=== PATIENT | male | born 1980 | race Caucasian/White ===

== ENCOUNTER 2019-02-03 22:45 | Emergency (ER) | payer OTHER ==
[2019-02-03 23:02] VITALS: BP 172/111; PULSE 65; RESP 20; TEMP 98.4
[2019-02-03] MEDS ORDERED: KETOROLAC 30 MG/ML 1 ML VIAL IM STA (23:12)
[2019-02-03] MEDS ORDERED: ORPHENADRINE 30 MG/ML 2 ML VIAL IM STA (23:12)
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
== END 2019-02-04 00:08 | disposition home or self-care (01) ==
LOC: EC 22:45
DX: Z04.1 Encounter for examination and observation following transport accident (principal); E11.9 Type 2 diabetes mellitus without complications; I10 Essential (primary) hypertension; V53.6XXA Passenger in pick-up truck or van injured in collision with car, pick-up truck or van in traffic accident, initial encounter; Y92.410 Unspecified street and highway as the place of occurrence of the external cause; Y99.0 Civilian activity done for income or pay
CPT/HCPCS: 72040; 99284; 96372 ×2; J2360; J1885